=== PATIENT | female | born 1980 | race Two or more races ===

== ENCOUNTER 2017-06-03 13:15 | Emergency (ER) | payer SELFPAY ==
[~2017-06-03] VITALS: Ht 167.6 cm; Wt 78.0 kg
[2017-06-03 13:30] VITALS: BP 131/75
--- NOTE | 2017-06-03 13:32 | PHYS DOC ---
Adult General Chief Complaint Chief Complaint: HEMORRHOIDS HPI HPI Patient is a 37 year old female who presents with hemorrhoid pain. She states been going on for about the last 15 days. She's had a history of hemorrhoids in the past. She's been using mnvw-yak-[id number] creams and suppositories without any relief. She states it seems like is getting bigger. She hasn't taken any medicines for constipation as of yet. She denies any previous surgical history, denies any allergies and medications, and takes metformin for type 2 diabetes. Review of Systems Review of Systems Constitutional: Denies fever or chills [] Eyes: Denies change in visual acuity, redness, or eye pain [] HENT: Denies nasal congestion or sore throat [] Respiratory: Denies cough or shortness of breath [] Cardiovascular: No additional information not addressed in HPI [] GI: Denies abdominal pain, nausea, vomiting, bloody stools or diarrhea [] : Denies dysuria or hematuria [] Musculoskeletal: Denies back pain or joint pain [] Integument: Denies rash or skin lesions [] Neurologic: Denies headache, focal weakness or sensory changes [] Endocrine: Denies polyuria or polydipsia [] Current Medications Current Medications Current Medications Medications (Trade) Dose Ordered Sig/Mayuri Start Time Stop Time Status Last Admin Dose Admin Lidocaine HCl (Xylocaine 2% Topical 30gm Tube) 1 jackelyn 1X ONCE 06/03/17 14:30 06/03/17 14:31 UNV Allergies Allergies Allergies Coded Allergies Type Severity Reaction Last Updated Verified No Known Drug Allergies 06/03/17 No Physical Exam Physical Exam Constitutional: Well developed, well nourished, no acute distress, non-toxic appearance. [] HENT: Normocephalic, atraumatic, bilateral external ears normal, oropharynx moist, no oral exudates, nose normal. [] Eyes: PERRLA, EOMI, conjunctiva normal, no discharge. [] Neck: Normal range of motion, no tenderness, supple, no stridor. [] Cardiovascular:Heart rate regular rhythm, no murmur [] Lungs & Thorax: Bilateral breath sounds clear to auscultation [] Abdomen:Rectal: Bowel sounds normal, soft, no tenderness, no masses, no pulsatile masses. Rectal exam shows 4 mm external hemorrhoid that is tender to palpation Skin: Warm, dry, no erythema, no rash. [] Back: No tenderness, no CVA tenderness. [] Extremities: No tenderness, no cyanosis, no clubbing, ROM intact, no edema. [] Neurologic: Alert and oriented X 3, normal motor function, normal sensory function, no focal deficits noted. [] Psychologic: Affect normal, judgement normal, mood normal. [] Current Patient Data Vital Signs Vital Signs Date Time Temp Pulse Resp B/P (MAP) Pulse Ox O2 Delivery O2 Flow Rate FiO2 06/03/17 13:30 98.0 58 20 131/75 (93) 97 Room Air 98.0 EKG EKG [] Radiology/Procedures Radiology/Procedures [] Impressions: External hemorrhoid Course & Med Decision Making Course & Med Decision Making Pertinent Labs and Imaging studies reviewed. (See chart for details) I spoke with Dr. Welsh regarding the patient's hemorrhoid and he wants her to follow-up as an outpatient since the patient doesn't want to stay and have it removed tomorrow in the hospital. He recommends using lidocaine cream and sitz baths. Patient's being given Dr. Welsh's clinic information and she is to call later today and schedule appointment for tomorrow. She is agreeable plan return precautions given and is being discharged in stable condition this time. Dragon Disclaimer Dragon Disclaimer This electronic medical record was generated, in whole or in part, using a voice recognition dictation system. Departure Departure Impression: Primary Impression: External hemorrhoid Disposition: 01 HOME, SELF-CARE Condition: STABLE Referrals: UNKNOWN PCP NAME (PCP) ROBERTO CARLOS WELSH MD Patient Instructions: Hemorrhoids, [id number] Additional Instructions: You were seen today for your hemorrhoid pain. Your being discharged home. You can take [id number] rectal care cream which has lidocaine and it. This will help take away some of the pain and discomfort. You will also need to do sits baths. Please call Dr. Welsh's office today and schedule follow-up appointment with him tomorrow to have these removed. You can also use MiraLAX he can purchase [id number]-rmgvppy as a stool softener. Return back to ER for severe pain, fevers, or other concerns. EVI MORAN MD Jun 03, 2017 13:32
[2017-06-03] MEDS ORDERED: LIDOCAINE 2% TOPICAL JELLY 30GM TUBE. TP ONE (14:30)
[2017-06-03] MEDS ORDERED: LIDOCAINE 2% TOPICAL JELLY 5GM TUBE. TP ONE (14:45)
== END 2017-06-03 14:52 | disposition home or self-care (01) ==
LOC: ER 13:15
DX: K64.4 Residual hemorrhoidal skin tags (principal); E11.9 Type 2 diabetes mellitus without complications; Z79.84 Long term (current) use of oral hypoglycemic drugs
CPT/HCPCS: 99283

== ENCOUNTER 2017-08-26 17:30 | Emergency (ER) | payer SELFPAY ==
[~2017-08-26] VITALS: Ht 160 cm; Wt 78.0 kg
[2017-08-26 17:46] VITALS: BP 122/73
--- NOTE | 2017-08-26 18:42 | PHYS DOC ---
Past Medical History Past Medical History: Diabetes-Type II Additional Past Medical Histor: HEMORRHOIDS Past Surgical History: No Surgical History Alcohol Use: Occasionally Drug Use: None Adult General Chief Complaint Chief Complaint: HEMORRHOIDS HPI HPI Patient is a 37 year old female, Green[place]ic speaking only presents to the emergency department stating that she has hemorrhoids. She was seen here in May for hemorrhoids and was seen at [facility] 2 months ago. Patient has been instructed to follow-up with Dr. Charles here at our facility as well as [facility] was told her to follow up with a colorectal surgeon at . Patient has neglected to follow up with either physicians. She returns back to emergency department today stating that she's been having increased pain in her rectal area with her hemorrhoids for the last couple of days. She states that she's been having to strain to have bowel movements. Patient denies any rectal bleeding. Denies any nausea vomiting fever or chills. Daughter at bedside is interpreting for the patient. Review of Systems Review of Systems Constitutional: Denies fever or chills [] Eyes: Denies change in visual acuity, redness, or eye pain [] HENT: Denies nasal congestion or sore throat [] Respiratory: Denies cough or shortness of breath [] Cardiovascular: No additional information not addressed in HPI [] GI: Denies abdominal pain, nausea, vomiting, bloody stools or diarrhea [] : Denies dysuria or hematuria. Patient complaining of hemorrhoids Musculoskeletal: Denies back pain or joint pain [] Integument: Denies rash or skin lesions [] Neurologic: Denies headache, focal weakness or sensory changes [] Endocrine: Denies polyuria or polydipsia [] All other systems were reviewed and found to be within normal limits, except as documented in this note. Allergies Allergies Allergies Coded Allergies Type Severity Reaction Last Updated Verified No Known Drug Allergies 06/03/17 No Physical Exam Physical Exam Constitutional: Well developed, well nourished, no acute distress, non-toxic appearance. [] HENT: Normocephalic, atraumatic, bilateral external ears normal, oropharynx moist, no oral exudates, nose normal. [] Eyes: PERRLA, EOMI, conjunctiva normal, no discharge. [] Neck: Normal range of motion, no tenderness, supple, no stridor. [] Cardiovascular:Heart rate regular rhythm, no murmur [] Lungs & Thorax: Bilateral breath sounds clear to auscultation [] Skin: Warm, dry, no erythema, no rash. [] Back: No tenderness Extremities: No tenderness, no cyanosis, no clubbing, ROM intact, no edema. [] Neurologic: Alert and oriented X 3, normal motor function, normal sensory function, no focal deficits noted. [] Psychologic: Affect normal, judgement normal, mood normal. [] Patient was noted to have a thrombosed hemorrhoid external. No bleeding or drainage noted from the site. Current Patient Data Vital Signs Vital Signs Date Time Temp Pulse Resp B/P (MAP) Pulse Ox O2 Delivery O2 Flow Rate FiO2 08/26/17 17:46 98.1 72 20 96 Room Air 98.1 EKG EKG [] Radiology/Procedures Radiology/Procedures [] Course & Med Decision Making Course & Med Decision Making Pertinent Labs and Imaging studies reviewed. (See chart for details) Patient was instructed to use Colace to help soften the stools. She was also instructed to use Tussionex wipes. Patient was also instructed to use a high- fiber diet with lots of fruits and vegetables plenty of water. She was instructed to follow up with a colorectal surgeon at . She is provided with information to use sitz baths 4-5 times a day. Recommended follow-up within the next 3-5 days. Sent symptoms return back to emergency department has been provided. All questions and concerns been answered at the patients bedside. All information was provided by the daughter at the bedside who speaks Yi as the patient speaks Green[place]ic only. [] Dragon Disclaimer Dragon Disclaimer This electronic medical record was generated, in whole or in part, using a voice recognition dictation system. Departure Departure Impression: Primary Impression: Thrombosed hemorrhoids Disposition: 01 HOME, SELF-CARE Condition: STABLE Referrals: NO PCP (PCP) Patient Instructions: Hemorrhoids, [id number] Additional Instructions: Activity as tolerated. Colace as needed for stool softeners. High fiber diet to include fruits and vegetables and plenty of water. Tussionex wipes to help keep the area clean. Warm sitz baths 4-5 times a day. Follow-up with colorectal surgeon at . Return back to emergency department for signs and symptoms of become worse. Trav Juarez DO, FACS P: [phone] SRI SALVADOR APRN Aug 26, 2017 18:42
== END 2017-08-26 18:46 | disposition home or self-care (01) ==
LOC: ER 17:30
DX: K64.5 Perianal venous thrombosis (principal); E11.9 Type 2 diabetes mellitus without complications
CPT/HCPCS: 99281; 99283